=== PATIENT | male | born 1945 | race Caucasian/White ===

== ENCOUNTER → 2018-06-05 | Outpatient (CLI) | payer BC ==
[~2018-06-05] MED LIST: ASPIRIN 81M81 MG/TA2; CIPRO 500MG TA500 MG PO; COLACE 100100 MG/CAP PO; CRESTOR 10MG10 MG PO; CRESTOR20 MG PO; FLOMAX 0.40.4 MG/CAP PO; FLONASE NASAL S16 GM NS; GLUCOSAMINE SU750 MG PO; GLUCOSAMINE500 M2 PO; MULTIPLE VITAMI1 CAP PO; OMEGA 31000 MG PO; OMEGA-3 FISH1200 MG PO; PERCOCET 325 MG1 TA2 PO; PRIL40; STRATTERA 40MG40 MG PO; TIMOLOL 0.5% OP10 ML OU
== END ==
LOC: COL.VAS 08:49
DX: Z13.6 Encounter for screening for cardiovascular disorders (principal); L03.115 Cellulitis of right lower limb; I87.2 Venous insufficiency (chronic) (peripheral)

== ENCOUNTER 2019-04-24 19:25 | Emergency (ER) | payer BC ==
[~2019-04-24] VITALS: Ht 172.7 cm; Wt 77.3 kg
[2019-04-24 19:59] VITALS: BP 143/91; TEMP 98
[2019-04-24 22:06] VITALS: PULSE 78
== END 2019-04-24 22:00 | disposition home or self-care (01) ==
LOC: COL.ER 19:25
DX: S01.81XA Laceration without foreign body of other part of head, initial encounter (principal); E11.9 Type 2 diabetes mellitus without complications; E78.5 Hyperlipidemia, unspecified; E23.7 Disorder of pituitary gland, unspecified; Z23 Encounter for immunization; Z79.82 Long term (current) use of aspirin; Z88.1 Allergy status to other antibiotic agents; Z87.891 Personal history of nicotine dependence; Z79.51 Long term (current) use of inhaled steroids; W01.0XXA Fall on same level from slipping, tripping and stumbling without subsequent striking against object, initial encounter; Y92.009 Unspecified place in unspecified non-institutional (private) residence as the place of occurrence of the external cause

== ENCOUNTER → 2019-05-01 | Outpatient (CLI) | payer BC ==
[2019-05-01 07:14] VITALS: BP 131/76; PULSE 88; TEMP 97.7
== END ==
LOC: COL.ER 06:56
DX: Z48.02 Encounter for removal of sutures (principal)

== ENCOUNTER → 2020-12-13 | Outpatient (CLI) | payer BC | LOC: COL.RAD 10:58 | DX: Z01.812 Encounter for preprocedural laboratory examination (principal) | CPT/HCPCS: Q9967 ==